=== PATIENT | female | born 1935 | race Caucasian/White ===

== ENCOUNTER → 2017-11-23 | Day surgery (SDC) | payer OTHER, MEDICARE ==
[2017-11-22 11:21] VITALS: BMI 23.0
[~2017-11-23] VITALS: Ht 154.9 cm; Wt 55.5 kg
[~2017-11-23] MED LIST: ATOR-24 PO; DICY10CA12 PO; FENO48TA9 PO; LEVO88TA3 PO; LIDOCAINE HCL 2% 2 ML VIAL (20MG/ML) ONE; LISI10TA PO; MIDAZOLAM HCL 1 MG/ML 2ML VIAL ONE; ONDANSETRON INJ 2 MG/ML 2 ML VIAL ONE; POTA10CA28 PO; PROPOFOL IV EMULSION 10 MG/ML 20 ML VIAL IV ONE; SODIUM CHLORIDE 0.9% 500ML 500 ML IV ONE
[2017-11-23 08:13] VITALS: Ht 154.9 cm; Wt 55.5 kg
--- NOTE | 2017-11-23 08:24 | Endo History and Physical ---
History & Physical Date of Service: Nov 23, 2017. Chief Complaint: RECTAL BLEEDING Referring Physician: DR. HATFIELD History of Present Illness 82 yo CF who presents for colonoscopy secondary to rectal bleeding. Past Surgical History Hx Cardiac Surgery: No Hx Internal Defibrillator: No Hx Pacemaker: No Hx Abdominal Surgery: Yes (isaura) Hx of Implantable Prosthesis: No Hx Post-Op Nausea and Vomiting: No Hx Cancer Surgery: No Hx Thoracic Surgery: No Hx Orthopedic: Yes (right rcr, right bunionectomy) Hx Urinary Tract Surgery: No Family History None Social History Smoking Status: Never Smoker Hx Substance Use: No Hx Alcohol Use: No Allergies Coded Allergies: No Known Allergies (Unverified , 11/23/17) Current Medications Reported Home Medications Medications Dose Route/Sig Max Daily Dose Days Date Category Micro-K Ext Rel (Potassium Chloride) 10 Meq Capcr 20 Meq PO QAM 11/22/17 Reported Dicyclomine Hcl 10 Mg Cap 1 Cap PO TID PRN 11/22/17 Reported Lipitor (Atorvastatin Calcium) 40 Mg Tab 40 Mg PO HS 11/22/17 Reported Tricor (Fenofibrate) 48 Mg Tab 48 Mg PO QAM 11/22/17 Reported Prinivil (Lisinopril) 10 Mg Tab 10 Mg PO QAM 11/22/17 Reported Levothyroxine Sodium 88 Mcg Tab 1 Tab PO QAM 11/22/17 Reported Vital Signs Weight (Kilograms): 55.45 Height (Feet): 5 Height (Inches): 1 Date Time Temp Pulse Resp B/P (MAP) Pulse Ox O2 Delivery O2 Flow Rate FiO2 11/23/17 08:19 36.6 63 18 177/70 (105) 100 Room Air Physical Exam General Appearance: WD/WN, no apparent distress Respiratory/Chest: Auscultation: breath sounds normal Cardiovascular: Heart Auscultation: RRR Abdomen: Bowel Sounds: normal Inspection & Palpation: soft, non-distended, no tenderness, guarding & rebound Assessment and Plan Assessment: 82 yo CF who presents for colonoscopy secondary to rectal bleeding. Plan: Proceed with colonoscopy.
--- NOTE | 2017-11-23 09:23 | Discharge Instructions ---
Endoscopy Patient Instructions Date / Procedure(s) Performed Nov 23, 2017. Colonoscopy Allergy Information Coded Allergies: No Known Allergies (Unverified , 11/23/17) Discharge Date / Findings Nov 23, 2017. Colon polyp Diverticulosis Anal Stricture Medication Instructions OK to resume all medications today as prescribed Reported Home Medications Medications Dose Route/Sig Max Daily Dose Days Date Category Micro-K Ext Rel (Potassium Chloride) 10 Meq Capcr 20 Meq PO QAM 11/22/17 Reported Dicyclomine Hcl 10 Mg Cap 1 Cap PO TID PRN 11/22/17 Reported Lipitor (Atorvastatin Calcium) 40 Mg Tab 40 Mg PO HS 11/22/17 Reported Tricor (Fenofibrate) 48 Mg Tab 48 Mg PO QAM 11/22/17 Reported Prinivil (Lisinopril) 10 Mg Tab 10 Mg PO QAM 11/22/17 Reported Levothyroxine Sodium 88 Mcg Tab 1 Tab PO QAM 11/22/17 Reported Provider Instructions Activity Restrictions - No exercising or heavy lifting for 24 hours. - Do not drink alcohol the day of the procedure. - Do not drive a car or operate machinery until the day after the procedure. - Do not make any important decisions or sign important papers in 24 hours after the procedure. Following Day: - Return to full activity which may include returning to work/school. Diet Start your diet with liquids and light foods (jello, soup, juice, toast). Then eat your usual diet if not nauseated. Treatment For Common After Affects For mild abdominal pain, bloating, or excessive gas: - Rest - Eat lightly - Lie on right side Follow-Up Information Follow-up with DR. HATFIELD as scheduled Anesthesia Information What You Should Know You have had a procedure that required some medicine to reduce anxiety and discomfort. This treatment is called moderate sedation. After receiving the treatment, you may be sleepy, but you will be able to breathe on your own. The effects of the treatment may last for several hours. Follow these instructions along with Activity/Diet recommendations noted above: * Do NOT do anything where dizziness or clumsiness would be dangerous. * Rest quietly at home today, then you can be up and about tomorrow. * Have a responsible person stay with you the rest of today. * You may have had an I.V. today. If so, you may take the dressing off later today. Recommendations Call your doctor if: * Trouble breathing * Continuous vomiting for more than 24 hours * Temperature above 101 degrees * Severe abdominal pain or bloating * Pain not relieved by pain medicine ordered * There is increased drainage or redness from any incision * A large amount of rectal bleeding greater than 2-3 tablespoons. (If you had a polyp/s removed or have hemorrhoids, a small amount of blood - from the rectum is to be expected.) * You have any unanswered questions or concerns. IN THE EVENT OF A SERIOUS EMERGENCY, GO TO THE NEAREST EMERGENCY ROOM Your discharge instructions were prepared by provider Luke Tse. Patient Instructions Signature Page Nataliia Quintanilla Patient (or Guardian) Signature/Date: I have read and understand the instructions given to me by my caregivers. Caregiver/RN/Doctor Signature/Date: The above-named patient and/or guardian has received patient instructions on this date. + Original Patient Signature Page (only) stays with chart. Please make copy for patient.
--- NOTE | 2017-11-23 09:27 | Anesthesiology Progress Note ---
Anesthesia Post Op Note Date & Time Nov 23, 2017 at 09:27 Vital Signs Pain Intensity: 0 Vital Signs Past 12 Hours Date Time Temp Pulse Resp B/P (MAP) Pulse Ox O2 Delivery O2 Flow Rate FiO2 11/23/17 09:14 36.6 64 16 123/50 (74) 98 Room Air 11/23/17 08:19 36.6 63 18 177/70 (105) 100 Room Air Notes Mental Status: alert / awake / arousable, participated in evaluation Pt Amnestic to Procedure: Yes Nausea / Vomiting: adequately controlled Pain: adequately controlled Airway Patency, RR, SpO2: stable & adequate BP & HR: stable & adequate Hydration State: stable & adequate Anesthetic Complications: no major complications apparent
--- NOTE | 2017-11-23 09:33 | GI REPORT ---
Procedure Date: 11/23/2017 8:30 AM Procedure: Colonoscopy Indications: Rectal bleeding Medicines: Monitored Anesthesia Care Complications: No immediate complications. Estimated Blood Loss: Estimated blood loss: none. Procedure: Pre-Anesthesia Assessment: - Prior to the procedure, a History and Physical was performed, and patient medications and allergies were reviewed. The patient's tolerance of previous anesthesia was also reviewed. The risks and benefits of the procedure and the sedation options and risks were discussed with the patient. All questions were answered, and informed consent was obtained. Prior Anticoagulants: The patient has taken no previous anticoagulant or antiplatelet agents. ASA Grade Assessment: II - A patient with mild systemic disease. After reviewing the risks and benefits, the patient was deemed in satisfactory condition to undergo the procedure. After I obtained informed consent, the scope was passed under direct vision. Throughout the procedure, the patient's blood pressure, pulse, and oxygen saturations were monitored continuously. The scope was introduced through the anus and advanced to the terminal ileum. The colonoscopy was technically difficult and complex due to previous surgery, restricted mobility of the colon and significant looping. Successful completion of the procedure was aided by changing the patient to a supine position and using manual pressure. The patient tolerated the procedure fairly well. The quality of the bowel preparation was good. The ileocecal valve, appendiceal orifice, and rectum were photographed. Findings: The perianal and digital rectal examinations were normal. Scattered small-mouthed diverticula were found in the entire colon. A 7 mm polyp was found in the ascending colon. The polyp was sessile. The polyp was removed with a hot snare. Resection and retrieval were complete. A benign-appearing, intrinsic moderate stenosis measuring 1 cm (in length) x 1 cm (inner diameter) was found at the anus and was traversed. Impression: - Diverticulosis in the entire examined colon. - One 7 mm polyp in the ascending colon, removed with a hot snare. Resected and retrieved. - Stricture at the anus. Recommendation: - Resume previous diet. - Continue present medications. - Repeat colonoscopy for surveillance based on pathology results. - Return to primary care physician as previously scheduled. Luke Tse DO 11/23/2017 9:32:39 AM This report has been signed electronically. Note Initiated On: 11/23/2017 8:30 AM I attest to the content of the Intraoperative Record and orders documented therein, exceptions below
[2017-11-23 09:57] VITALS: BP 146/60; PULSE 63; O2SAT 96
== END | disposition home or self-care (01) ==
LOC: C.GI 07:32
PROVIDERS: ATTEND Internal Medicine
DX: K62.5 Hemorrhage of anus and rectum (principal); K62.4 Stenosis of anus and rectum; K57.30 Diverticulosis of large intestine without perforation or abscess without bleeding; I10 Essential (primary) hypertension